=== PATIENT | male | born 1950 | race Caucasian/White ===

== ENCOUNTER 2017-11-16 08:38 | Emergency (ER) | payer OTHER ==
[~2017-11-16] VITALS: Ht 182.9 cm; Wt 90.7 kg
[~2017-11-16 08:38] MED LIST: AMLO10TA2 PO; CRESTOR PO; DIGOXIN; DILT120C87 PO; FENO145T PO; Folic Acid PO; METO100T7 PO; MULT-24 PO; OMEP20CA10 PO; THIA100T13 PO; ZOLP10TA6 PO
[2017-11-16] MEDS ORDERED: LOSA25TA3 PO (08:56)
--- NOTE | 2017-11-16 09:03 | NUR ---
Patient discharged to home in stable conditon. Written and verbal after care instructions given. Patient verbalizes understanding of instructions.pt family member at [facility]. pt not driving. Addendum: 11/16/17 at 0918 by [email or web address] pt looking for own hair piece. no hair piece noticed when pt came on [facility].
[2017-11-16 09:05] VITALS: BP 129/61
== END 2017-11-16 09:19 | disposition home or self-care (01) ==
LOC: ER 08:38
DX: S00.03XA Contusion of scalp, initial encounter (principal); I10 Essential (primary) hypertension; I48.91 Unspecified atrial fibrillation; Z88.8 Allergy status to other drugs, medicaments and biological substances; W18.30XA Fall on same level, unspecified, initial encounter; Y93.89 Activity, other specified; Y99.8 Other external cause status; Y92.89 Other specified places as the place of occurrence of the external cause
CPT/HCPCS: 99281; A4663